=== PATIENT | male | born 1970 | race Caucasian/White ===

== ENCOUNTER → 2024-01-16 14:27 | Outpatient (REF) | payer BC, SELFPAY | LOC: HWRAD 14:27 | PROVIDERS: ATTENDING PHYSICIAN Nurse Practitioner Family; FAMILY PHYSICIAN Internal Medicine | DX: R07.81 Pleurodynia (principal); R05.1 Acute cough; Z80.1 Family history of malignant neoplasm of trachea, bronchus and lung; N64.4 Mastodynia | CPT/HCPCS: 71260; Q9967 ==